=== PATIENT | female | born 1955 ===

== ENCOUNTER 2019-02-07 09:45 | Outpatient (CLI) | payer OTHER ==
[~2019-02-07] VITALS: Ht 152.4 cm; Wt 62.6 kg
== END 2019-02-07 10:00 | disposition home or self-care (01) ==
LOC: OFIC 805 09:45
DX: J38.01 Paralysis of vocal cords and larynx, unilateral (principal); R06.1 Stridor; R49.9 Unspecified voice and resonance disorder; J31.0 Chronic rhinitis; E66.8 Other obesity